=== PATIENT | male | born 1955 | race Caucasian/White ===

== ENCOUNTER 2022-02-22 18:56 | Emergency (ER) | payer MEDICARE, OTHER, SELFPAY ==
[2022-02-22] VITALS (26 sets, daily range): BP systolic 80–135; BP diastolic 52–90; PULSE 68–94; RESP 15–27; TEMP 36.6; O2SAT 92–99; BMI 26.9
--- NOTE | 2022-02-22 18:58 | DI.RAD.S_ITS ---
PROCEDURE: XR CHEST 1V INDICATIONS: chest pain TECHNIQUE: One view of the chest was acquired. COMPARISON: None. FINDINGS: Surgical changes and devices: None. Lungs and pleura: Lungs are clear. No pleural effusions or pneumothorax. Mediastinum: Suspected small hiatal hernia Mediastinal contours otherwise normal. Heart size is normal. Bones and chest wall: No suspicious bony lesions. Overlying soft tissues appear unremarkable. IMPRESSION: Suspect small hiatal hernia. No acute finding. Dictated by: Familia Virk M.D. on 02/22/2022 at 19:41 Approved by: Familia Virk M.D. on 02/22/2022 at 19:42
--- NOTE | 2022-02-22 19:03 | ED.CHESTPAIN ---
HPI - Chest Pain General Chief Complaint: Chest Pain Stated Complaint: chest pain radiating down left arm Time Seen by Provider: 02/22/22 19:03 History of Present Illness HPI narrative: 66-year-old male nonsmoker with noncontributory medical history presents with a chief complaint of central chest pain with radiation down his left arm that started while at rest yesterday. He denies any obvious provocation or palliation but states, as noted above that it radiates into his left shoulder and arm. He states at its most intense it was a 5/10 and currently is about a 2/10, he did take a full-dose aspirin about 1 hour ago. He states yesterday he was having associated symptoms such as shortness of breath some nausea and sweating but that resolved after a few hours. He does state that the pressure and discomfort has been present ever since his symptoms started yesterday. He denies radiation to his back or right side. He is not dizzy nor weak or lightheaded and denies any current shortness of breath, nausea, vomiting nor fever or chills. He is never had a blood clot and denies recent trauma, travel or known cancer. He was seen and evaluated by the medics yesterday and encouraged to come to the emergency department but he did not want to for various reasons at that point Related Data Allergies Allergy/AdvReac Type Severity Reaction Status Date / Time No Known Drug Allergies Allergy Verified 02/22/22 19:16 Review of Systems Review of Systems Narrative: GENERAL: See HPI HEENT: Denies sinus pain, ear pain, sore throat, difficulty swallowing, dizziness. RESPIRATORY: See HPI CARDIOVASCULAR: See HPI GASTROINTESTINAL: Denies nausea, vomiting, abdominal pain, diarrhea, constipation, melena. : Denies dysuria, frequency, incontinence, hematuria, urinary retention. MUSCULOSKELETAL: denies weakness, joint pain, or bony pain SKIN: Denies rash, skin lesions, or other NEUROLOGIC: Denies weakness, headache, numbness, change in speech, confusion, seizures, incoordination. PSYCHIATRIC: No concerning psychosocial issues. 12 point review of systems is negative except for those stated above Patient History Social History Smoking Status: Never smoker Exam Narrative Exam Narrative: GENERAL: [66] year old patient appears stated age. Well-developed patient, in mild distress. HEAD: Atraumatic. Normocephalic. EYES: Pupils equal round and reactive. Extraocular motions intact. No scleral icterus. No injection or drainage. ENT: Nose without bleeding, purulent drainage. Throat without erythema, tonsillar hypertrophy or exudate. Airway patent. NECK: Trachea midline. Non tender CARDIOVASCULAR: Regular rate and rhythm without murmurs, gallops, or rubs. RESPIRATORY: Clear to auscultation. Breath sounds equal bilaterally. No wheezes, rales, or rhonchi. GASTROINTESTINAL: Abdomen soft, non-tender, nondistended. EXTREMITIES: No edema or joint tenderness. BACK: Nontender without deformity or crepitance. No flank tenderness. NEURO: AOx3. SKIN: No rash or erythema of visible areas Initial Vital Signs Initial Vital Signs: Vital Signs Temperature 97.9 F 02/22/22 19:00 Pulse Rate 83 02/22/22 19:00 Respiratory Rate 18 02/22/22 19:00 Blood Pressure 127/90 02/22/22 19:00 Pulse Oximetry 97 02/22/22 19:00 Oxygen Delivery Method 02/22/22 19:00 Course Orders Ordered: ED Orders 02/22/22 18:58 XR chest 1V Stat EKG-12 Lead Stat 02/22/22 19:09 CRP [C-Reactive Protein Quant] Stat Complete Blood Count AUTO DIFF Stat Comprehensive Metabolic Panel Stat D Dimer Stat ESR [Erythrocyte Sedimentation Rate] Stat Lipase Stat Magnesium Stat Partial Thromboplastin Time Stat Prothrombin Time INR Stat Troponin & CK Cardiac Panel Stat 02/22/22 19:43 CT angio chest abdomen pelvis Stat 02/23/22 01:22 COVID19 -Nasal RAPID/Pre-Proc Stat 02/23/22 02:42 PTT [Partial Thromboplastin Time] Stat Heparin Sodium/Dextrose (Heparin Drip) 25,000 unit in 500 mls @ 20 mls/hr IV CONT LEO; Protocol Last Admin: 02/22/22 20:42 Dose: 1,000 units/hr, 20 mls/hr Documented By: ANNAMARIA Nitroglycerin (Nitroglycerin 0.4 Mg Sl Tab) 0.4 mg SL [id number] PRN PRN Reason: Chest Pain Last Admin: 02/22/22 19:17 Dose: 0.4 mg Documented By: ANNAMARIA Discontinued Medications Aspirin (Aspirin 81 Mg Chew Tab) 324 mg PO NOW ONE Stop: 02/22/22 19:05 Last Admin: 02/22/22 19:20 Dose: Not Given Documented By: ANNAMARIA Heparin Sodium (Porcine) (Heparin 5,000 Unit/Ml Vial) 5,000 unit IV NOW ONE Stop: 02/22/22 20:19 Last Admin: 02/22/22 20:35 Dose: 5,000 unit Documented By: ANNAMARIA Reevaluation(s) Reevaluation #1: Patient given nitro and did little to improve his pain (dropped from a 4 to a 3) but did result in a rather precipitous drop in his blood pressure from the initial 127 down to the 80s. Will not administer more Consultations Consultation #1: calls to [facility], [place], [facility]. No beds. On List. Call to , no beds initially, but at 0130 called back with available tele-bed. Dr. Mon happy to accept. Vital Signs Vital signs: Vital Signs - 8 hr 02/22/22 19:00 02/22/22 19:00 02/22/22 19:02 Temperature 97.9 F Pulse Rate 83 91 H Respiratory Rate 18 Blood Pressure 127/90 127/90 Pulse Oximetry 97 93 Oxygen Delivery Method Room Air Room Air 02/22/22 19:02 02/22/22 19:15 02/22/22 19:15 Temperature Pulse Rate 83 78 Respiratory Rate 18 26 H Blood Pressure 129/89 Pulse Oximetry 97 99 Oxygen Delivery Method Room Air Room Air 02/22/22 19:19 02/22/22 19:19 02/22/22 19:20 Temperature Pulse Rate 80 Respiratory Rate 25 H Blood Pressure 133/90 127/81 Pulse Oximetry 98 Oxygen Delivery Method Room Air 02/22/22 19:20 02/22/22 19:26 02/22/22 19:26 Temperature Pulse Rate 84 92 H Respiratory Rate 21 25 H Blood Pressure 80/53 L Pulse Oximetry 95 97 Oxygen Delivery Method Room Air Room Air 02/22/22 19:27 02/22/22 19:27 02/22/22 19:30 Temperature Pulse Rate 94 H Respiratory Rate 19 Blood Pressure 83/52 L 121/71 Pulse Oximetry 98 Oxygen Delivery Method Room Air 02/22/22 19:30 02/22/22 19:33 02/22/22 19:33 Temperature Pulse Rate 80 77 Respiratory Rate 20 21 Blood Pressure 128/77 Pulse Oximetry 97 98 Oxygen Delivery Method Room Air Room Air 02/22/22 19:36 02/22/22 19:36 02/22/22 19:39 Temperature Pulse Rate 74 Respiratory Rate Blood Pressure 119/83 119/81 Pulse Oximetry 97 Oxygen Delivery Method Room Air 02/22/22 19:39 02/22/22 19:42 02/22/22 19:42 Temperature Pulse Rate 68 71 Respiratory Rate 24 23 Blood Pressure 121/80 Pulse Oximetry 98 97 Oxygen Delivery Method Room Air Room Air 02/22/22 19:45 02/22/22 19:45 02/22/22 19:48 Temperature Pulse Rate 69 69 Respiratory Rate 21 24 Blood Pressure 120/78 Pulse Oximetry 98 98 Oxygen Delivery Method Room Air Room Air 02/22/22 19:48 02/22/22 19:51 02/22/22 19:51 Temperature Pulse Rate 68 Respiratory Rate 26 H Blood Pressure 128/76 121/76 Pulse Oximetry 98 Oxygen Delivery Method Room Air 02/22/22 19:54 02/22/22 19:54 02/22/22 19:57 Temperature Pulse Rate 70 Respiratory Rate Blood Pressure 119/81 135/82 Pulse Oximetry 98 Oxygen Delivery Method Room Air 02/22/22 19:57 02/22/22 20:14 02/22/22 20:30 Temperature Pulse Rate 73 72 73 Respiratory Rate 25 H 17 Blood Pressure Pulse Oximetry 98 92 98 Oxygen Delivery Method Room Air Room Air Room Air 02/22/22 21:00 02/22/22 21:30 02/22/22 22:00 Temperature Pulse Rate 79 82 80 Respiratory Rate 24 27 H 26 H Blood Pressure Pulse Oximetry 96 96 96 Oxygen Delivery Method Room Air Room Air Room Air 02/22/22 22:30 02/22/22 22:43 02/22/22 22:43 Temperature Pulse Rate 80 81 Respiratory Rate 25 H 22 Blood Pressure 126/60 Pulse Oximetry 96 97 Oxygen Delivery Method 02/22/22 23:00 02/22/22 23:30 02/23/22 00:00 Temperature Pulse Rate 71 76 80 Respiratory Rate 20 15 20 Blood Pressure 123/66 106/60 110/69 Pulse Oximetry 95 94 95 Oxygen Delivery Method Room Air 02/23/22 00:30 Temperature Pulse Rate 75 Respiratory Rate 16 Blood Pressure 104/73 Pulse Oximetry 96 Oxygen Delivery Method Room Air MDM - Chest Pain Lab Data Result diagrams: 02/22/22 19:09 02/22/22 19:09 Labs: Lab Results 02/22/22 02/22/22 02/22/22 Range/Units 19:09 19:09 19:09 WBC 10.6 (4.5-11.0) X10^3/uL RBC 5.09 (4.5-5.9) X10^6/uL Hgb 16.1 (13.5-17.5) g/dL Hct 46.2 (41-53) % MCV 90.7 (80-100) fL MCH 31.6 (26-34) PG MCHC 34.8 (30-36) % RDW 12.7 (11.6-14.8) % Plt Count 238 (150-400) X10^3/uL Neut % (Auto) 72.5 (50-75) % Lymph % (Auto) 15.4 L (25-40) % Bullock % (Auto) 11.1 (3-14) % Eos % (Auto) 0.6 L (2-4) % Baso % (Auto) 0.4 (0-2) % Neut # (Auto) 7700 H (2815-2936) /uL Lymph # (Auto) 1600 (8331-4248) /uL Bullock # (Auto) 1200 H (0-900) /uL Eos # (Auto) 100 (0-450) /uL Baso # (Auto) 0 (0-100) /uL ESR (0-15) MM/HR PT 11.7 (10.1-12.7) SECONDS INR 1.0 (0.9-1.3) APTT 30 (26-36) SECONDS D-Dimer (<500) ng/ml Sodium 139 (137-145) mmol/L Potassium 4.1 (3.4-5.1) mmol/L Chloride 105 (98-107) mmol/L Carbon Dioxide 24 (22-32) mmol/L BUN 13 (9-20) mg/dL Creatinine 0.90 (0.66-1.25) mg/dL Estimated GFR > 60 (>60) mL/min BUN/Creatinine Ratio 14.4 (6-22) Glucose 116 H (80-110) mg/dL Calcium 9.0 (8.4-10.2) mg/dL Magnesium 1.9 (1.6-2.3) mg/dL Total Bilirubin 0.7 (0.2-1.3) mg/dL AST 110 H (17-59) IU/L ALT 33 (<50) IU/L Alkaline Phosphatase 96 (38-126) U/L Total Creatine Kinase 252 H (55-170) U/L CK-MB (CK-2) 39.30 H (<2.37) ng/mL CK-MB (CK-2) Rel Index 15.6 H* (1.5-5.0) % Troponin I 6.390 H* (0.01-0.034) ng/mL C-Reactive Protein (<1.0) mg/dL Total Protein 7.9 (6.3-8.2) g/dL Albumin 4.2 (3.5-5.0) g/dL Globulin 3.7 (1.7-4.1) g/dL Albumin/Globulin Ratio 1.1 (1.0-2.8) Lipase 36 (23-300) U/L 02/22/22 02/22/22 02/22/22 Range/Units 19:09 19:09 19:09 WBC (4.5-11.0) X10^3/uL RBC (4.5-5.9) X10^6/uL Hgb (13.5-17.5) g/dL Hct (41-53) % MCV (80-100) fL MCH (26-34) PG MCHC (30-36) % RDW (11.6-14.8) % Plt Count (150-400) X10^3/uL Neut % (Auto) (50-75) % Lymph % (Auto) (25-40) % Bullock % (Auto) (3-14) % Eos % (Auto) (2-4) % Baso % (Auto) (0-2) % Neut # (Auto) (3010-3703) /uL Lymph # (Auto) (6919-9694) /uL Bullock # (Auto) (0-900) /uL Eos # (Auto) (0-450) /uL Baso # (Auto) (0-100) /uL ESR 6 (0-15) MM/HR PT (10.1-12.7) SECONDS INR (0.9-1.3) APTT (26-36) SECONDS D-Dimer 626 H (<500) ng/ml Sodium (137-145) mmol/L Potassium (3.4-5.1) mmol/L Chloride (98-107) mmol/L Carbon Dioxide (22-32) mmol/L BUN (9-20) mg/dL Creatinine (0.66-1.25) mg/dL Estimated GFR (>60) mL/min BUN/Creatinine Ratio (6-22) Glucose (80-110) mg/dL Calcium (8.4-10.2) mg/dL Magnesium (1.6-2.3) mg/dL Total Bilirubin (0.2-1.3) mg/dL AST (17-59) IU/L ALT (<50) IU/L Alkaline Phosphatase (38-126) U/L Total Creatine Kinase (55-170) U/L CK-MB (CK-2) (<2.37) ng/mL CK-MB (CK-2) Rel Index (1.5-5.0) % Troponin I (0.01-0.034) ng/mL C-Reactive Protein 3.0 H (<1.0) mg/dL Total Protein (6.3-8.2) g/dL Albumin (3.5-5.0) g/dL Globulin (1.7-4.1) g/dL Albumin/Globulin Ratio (1.0-2.8) Lipase (23-300) U/L Imaging Data CT scan - chest: Radiologist's Impression: Close Chest/Abdomen/Pelvis CTA (Signed) Franck Colvin - 02/22/22 Chest X-Ray (Signed) Familia Virk - 02/22/22 Launch?[address] [address] [address] Scan Report Signed Patient: Oren Hudson MR#: [id number] : 1955 Acct:[id number] Age/Sex: 66 / M Date of Service: 02/22/22 Loc: ED Accession Number: [id number] ?? Procedure: CT angio chest abdomen pelvis Ordering Provider: Nickolas Thomas D.O. PROCEDURE:? CT ANGIO CHEST ABDOMEN PELVIS ? INDICATIONS:? chest pain, radiation to arm, elevated Dimer ? TECHNIQUE:? Precontrast 5 mm thick sections acquired from the lung apices to the iliac crests.? After the administration of intravenous contrast, 2.5 mm thick sections again acquired from the lung apices to the iliac crests.? Maximum intensity projection (MIP) oblique sagittal and coronal reformats were then acquired.? For radiation dose reduction, the following was used:? automated exposure control.? ? COMPARISON:? None. ? FINDINGS:? Image quality:? Excellent.? ? AORTA:? Noncontrast images demonstrate no evidence of intramural hematoma.? The aorta is normal in caliber and contour without intimal flaps to suggest dissection.? There is conventional branching of the aortic arch.? The visualized great vessels are normal in caliber and appear patent.? The celiac, superior mesenteric, and inferior mesenteric arteries are patent.? There are 2 accessory right renal arteries.? There is a single left renal artery.? Renal arteries appear patent bilaterally.? The common, external, and internal iliac arteries appear patent.? The common femoral and visualized proximal superficial femoral arteries appear patent. ? CHEST:? Lower Neck: No lymphadenopathy by size criteria. Thyroid:? Visualized thyroid demonstrates no discrete nodules. Axillae: No lymphadenopathy by size criteria. Chest Wall:? Unremarkable.? Bones: Visualized osseous structures demonstrate no suspicious lesions. ? Lungs and Airways:? No acute consolidation.? There is mild dependent atelectasis bilaterally.? There is focal nodular thickening along the right minor fissure in the right middle lobe measuring up to 0.6 cm on series 6, image 194. A 0.3 cm right middle lobe nodules present on series 6, image 215. In the left lower lobe there is a 0.3 cm nodule on series 6, image 249.? The trachea and central airways are patent. Pleura: No pneumothorax or pleural effusions.? ? Heart: Heart size is normal.? No pericardial effusion. Thoracic Vessels: The pulmonary arteries demonstrate no filling defects to suggest pulmonary embolism. Mediastinum and Maggie: No lymphadenopathy by size criteria. Esophagus: No wall thickening.? There is a moderate-sized hiatal hernia. ? Lung bases:? Unremarkable.? ? Heart:? Heart is normal in size. ? ? ABDOMEN: Liver:? There is a cyst within the left hepatic lobe as well as additional small low-density foci in the liver which are too small to characterize but likely represent cysts.? Gallbladder:? Within normal limits without calcified gallstones.? ? Biliary ducts:? No biliary ductal dilatation.? ? Pancreas:? Unremarkable.? ? Spleen:? Normal in size.? ? Adrenal Glands:? No adrenal nodules.? ? Kidneys and Ureters:? No hydronephrosis.? ? ? Stomach and Bowel:? Stomach and small bowel loops are normal in caliber and wall thickness.? There is colonic diverticulosis without acute diverticulitis.? Mild segmental wall thickening in the sigmoid colon is suggestive of a mild colitis. Peritoneum:? No abnormal intraperitoneal fluid.? No free air.? ? Ventral Wall: ? No hernia.? Abdominal Nodes:? No retroperitoneal or mesenteric adenopathy by size criteria.? Vessels:? Aorta and inferior vena cava are normal in size.? ? PELVIS: Pelvic Organs:? There is moderate enlargement of the prostate.? ? Bladder:? Urinary bladder is partially distended with mild trabeculation of the bladder wall. Pelvic Nodes: No enlarged lymph nodes.? Miscellaneous:? A small fat-containing left inguinal hernia is present. ? Bones:? There are bilateral pars defects at L5 with anterolisthesis of L5 on S1 measuring approximately 0.7 cm. Severe degenerative disc disease demonstrated at L5-S1.? There is a mild superior endplate compression deformity of the L1 vertebral body anteriorly with up to 40% loss of height.? No retropulsed fragments in the spinal canal.? Visualized osseous structures demonstrate no suspicious focal lesions. ? ? IMPRESSION:? ? 1. No evidence of aortic dissection or aneurysm. ? 2. No evidence of central pulmonary embolism. ? 3. No acute airspace consolidation. ? 4. Small bilateral pulmonary nodules measuring up to 0.6 cm.? If patient is at high risk for malignancy, a follow-up chest CT may be performed in 12 months to demonstrate stability. ? 5. Mild superior endplate compression deformity of the L1 vertebral body of indeterminate acuity. ? 6. Bilateral pars defects at L5 with associated mild anterolisthesis. ? ? Dictated by: Franck Colvin M.D. on 02/22/2022 at 20:53 ? ? Approved by: Franck Colvin M.D. on 02/22/2022 at 21:03 ? ECG Data Interpretation: [1903] EKG is normal sinus rhythm rate [81] and free of any signs of ischemia or ectopy. Inverted if not slightly biphasic T-waves in V2 and V3 with inversions also noted in V4 and V5. No ST segmental elevations or depressions MDM Narrative Medical decision making narrative: Patient with concerning history and physical exam with EKG demonstrating biphasic T-waves in septal leads but no ST segmental elevation or depression. Patient has critically elevated troponin and requires transport to facility with inpatient Cardiology and will likely need heart catheterization. Patient and family aware of diagnosis and plan. We thank Devorah slaughter for their willingness inability to help this kind gentleman in need of cardiac care. Critical Care Time Critical Care Time Total Critical Care Time: 35 Attestation: The high probability of a clinically significant, sudden or life threatening deterioration of the [CV] system(s) required my full and direct attention, intervention and personal management. The aggregate critical care time was [35] minutes. This time is in addition to time spent performing reported procedures but includes the following: [x] Data Review and interpretation [x] Patient assessment and monitoring of vital signs [x] Documentation [x] Medication orders and management Discharge Plan Departure Patient Disposition: [facility] Clinical Impression: Acute non-ST elevation myocardial infarction (NSTEMI) Referrals: Malik Dickson DO [Primary Care Provider] -
[2022-02-22] MEDS: NITROGLYCERIN 0.4 MG SL TAB SL (19:17)
[2022-02-22 19:19] LABS: Add Manual Diff / Slide Review NO; Basophils Absolute Auto 0 /uL (0-100); Basophils Percent Auto 0.4 % (0-2); Eosinophils Absolute Auto 100 /uL (0-450); Eosinophils Percent Auto 0.6 % (2-4); Hematocrit 46.2 % (41-53); Hemoglobin 16.1 g/dL (13.5-17.5); Lymphocytes Absolute Auto 1600 /uL (1100-4500); Lymphocytes Percent Auto 15.4 % (25-40); Mean Corpuscular HGB Conc 34.8 % (30-36); Mean Corpuscular Hemoglobin 31.6 PG (26-34); Mean Corpuscular Volume 90.7 fL (80-100); Monocytes Absolute Auto 1200 /uL (0-900); Monocytes Percent Auto 11.1 % (3-14); Neutrophils Absolute Auto 7700 /uL (1500-7000); Neutrophils Percent Auto 72.5 % (50-75); Platelet Count 238 X10^3/uL (150-400); Red Blood Cell Count 5.09 X10^6/uL (4.5-5.9); Red Cell Distribution Width 12.7 % (11.6-14.8); White Blood Cell Count 10.6 X10^3/uL (4.5-11.0)
[2022-02-22 19:35] LABS: D Dimer 626 ng/ml (<500)
[2022-02-22 19:41] LABS: Alanine Aminotransferase 33 IU/L (<50); Albumin 4.2 g/dL (3.5-5.0); Albumin Globulin Ratio 1.1 (1.0-2.8); Alkaline Phosphatase 96 U/L (38-126); Aspartate Aminotransferase 110 IU/L (17-59); BUN Creatinine Ratio 14.4 (6-22); Bilirubin Total 0.7 mg/dL (0.2-1.3); Blood Urea Nitrogen 13 mg/dL (9-20); Carbon Dioxide 24 mmol/L (22-32); Chloride 105 mmol/L (98-107); Creatine Kinase 252 U/L (55-170); Estimated Glomerular Filt Rate > 60 mL/min (>60); Globulin 3.7 g/dL (1.7-4.1); Glucose 116 mg/dL (80-110); HEMOLYSIS < 15 (0-50); Lipase 36 U/L (23-300); Magnesium 1.9 mg/dL (1.6-2.3); Potassium 4.1 mmol/L (3.4-5.1); Sodium 139 mmol/L (137-145); Total Protein 7.9 g/dL (6.3-8.2)
[2022-02-22 19:43] LABS: Prothrombin Time 11.7 SECONDS (10.1-12.7)
--- NOTE | 2022-02-22 19:43 | DI.CT.S_ITS ---
PROCEDURE: CT ANGIO CHEST ABDOMEN PELVIS INDICATIONS: chest pain, radiation to arm, elevated Dimer TECHNIQUE: Precontrast 5 mm thick sections acquired from the lung apices to the iliac crests. After the administration of intravenous contrast, 2.5 mm thick sections again acquired from the lung apices to the iliac crests. Maximum intensity projection (MIP) oblique sagittal and coronal reformats were then acquired. For radiation dose reduction, the following was used: automated exposure control. COMPARISON: None. FINDINGS: Image quality: Excellent. AORTA: Noncontrast images demonstrate no evidence of intramural hematoma. The aorta is normal in caliber and contour without intimal flaps to suggest dissection. There is conventional branching of the aortic arch. The visualized great vessels are normal in caliber and appear patent. The celiac, superior mesenteric, and inferior mesenteric arteries are patent. There are 2 accessory right renal arteries. There is a single left renal artery. Renal arteries appear patent bilaterally. The common, external, and internal iliac arteries appear patent. The common femoral and visualized proximal superficial femoral arteries appear patent. CHEST: Lower Neck: No lymphadenopathy by size criteria. Thyroid: Visualized thyroid demonstrates no discrete nodules. Axillae: No lymphadenopathy by size criteria. Chest Wall: Unremarkable. Bones: Visualized osseous structures demonstrate no suspicious lesions. Lungs and Airways: No acute consolidation. There is mild dependent atelectasis bilaterally. There is focal nodular thickening along the right minor fissure in the right middle lobe measuring up to 0.6 cm on series 6, image 194. A 0.3 cm right middle lobe nodules present on series 6, image 215. In the left lower lobe there is a 0.3 cm nodule on series 6, image 249. The trachea and central airways are patent. Pleura: No pneumothorax or pleural effusions. Heart: Heart size is normal. No pericardial effusion. Thoracic Vessels: The pulmonary arteries demonstrate no filling defects to suggest pulmonary embolism. Mediastinum and Maggie: No lymphadenopathy by size criteria. Esophagus: No wall thickening. There is a moderate-sized hiatal hernia. Lung bases: Unremarkable. Heart: Heart is normal in size. ABDOMEN: Liver: There is a cyst within the left hepatic lobe as well as additional small low-density foci in the liver which are too small to characterize but likely represent cysts. Gallbladder: Within normal limits without calcified gallstones. Biliary ducts: No biliary ductal dilatation. Pancreas: Unremarkable. Spleen: Normal in size. Adrenal Glands: No adrenal nodules. Kidneys and Ureters: No hydronephrosis. Stomach and Bowel: Stomach and small bowel loops are normal in caliber and wall thickness. There is colonic diverticulosis without acute diverticulitis. Mild segmental wall thickening in the sigmoid colon is suggestive of a mild colitis. Peritoneum: No abnormal intraperitoneal fluid. No free air. Ventral Wall: No hernia. Abdominal Nodes: No retroperitoneal or mesenteric adenopathy by size criteria. Vessels: Aorta and inferior vena cava are normal in size. PELVIS: Pelvic Organs: There is moderate enlargement of the prostate. Bladder: Urinary bladder is partially distended with mild trabeculation of the bladder wall. Pelvic Nodes: No enlarged lymph nodes. Miscellaneous: A small fat-containing left inguinal hernia is present. Bones: There are bilateral pars defects at L5 with anterolisthesis of L5 on S1 measuring approximately 0.7 cm. Severe degenerative disc disease demonstrated at L5-S1. There is a mild superior endplate compression deformity of the L1 vertebral body anteriorly with up to 40% loss of height. No retropulsed fragments in the spinal canal. Visualized osseous structures demonstrate no suspicious focal lesions. IMPRESSION: 1. No evidence of aortic dissection or aneurysm. 2. No evidence of central pulmonary embolism. 3. No acute airspace consolidation. 4. Small bilateral pulmonary nodules measuring up to 0.6 cm. If patient is at high risk for malignancy, a follow-up chest CT may be performed in 12 months to demonstrate stability. 5. Mild superior endplate compression deformity of the L1 vertebral body of indeterminate acuity. 6. Bilateral pars defects at L5 with associated mild anterolisthesis. Dictated by: Franck Colvin M.D. on 02/22/2022 at 20:53 Approved by: Franck Colvin M.D. on 02/22/2022 at 21:03
[2022-02-22 19:46] LABS: PTT Partial Thromboplastin Tim 30 SECONDS (26-36)
[2022-02-22 19:59] LABS: Erythrocyte Sedimentation Rate 6 MM/HR (0-15)
[2022-02-22 20:14] LABS: CKMB % Relative Index 15.6 % (1.5-5.0)
[2022-02-22] MEDS: HEPARIN 5,000 UNIT/ML VIAL 5000 UNIT IV (20:35)
[2022-02-22] MEDS: HEPARIN DRIP 25,000 UNIT/500 ML IV.SOLN 20 UNIT IV (20:42)
--- NOTE | 2022-02-22 23:54 | PC.NURSE ---
CUSTOMS VERIFIER/pta note: Called for a transfer: [facility]: 0 beds. Waitlist 2324. Sent facesheet [facility]: 0 beds. Waitlist 2325. Sent facesheet. [facility]: 0 beds. Waitlist. 2329. Sent facesheet. [facility]: no beds, no waitlist. Devorah Morales: Will call us back. 2334. Sent facesheet and pushed images. Talked to Conrad.
[2022-02-23] VITALS: BP 110/69; PULSE 80; RESP 20; O2SAT 95
[2022-02-23 00:30] VITALS: BP 104/73; PULSE 75; RESP 16; O2SAT 96
[2022-02-23 01:00] VITALS: BP 101/60; PULSE 81; RESP 21; O2SAT 96
[2022-02-23 01:30] VITALS: BP 113/67; PULSE 90; RESP 20; O2SAT 99
[2022-02-23 01:50] LABS: COVID19 -Nasal RAPID Negative (Negative)
[2022-02-23 02:00] VITALS: BP 116/80; PULSE 83; RESP 20; O2SAT 94
== END 2022-02-23 02:25 | disposition short-term general hospital (02) ==
PROVIDERS: Emergency Provider Emergency Medicine; PCP Family Medicine
DX: I21.4 Non-ST elevation (NSTEMI) myocardial infarction (principal); Z20.822 Contact with and (suspected) exposure to COVID-19
CPT/HCPCS: 36415; 71045; 71275; 74174; 80053; 82550; 82553; 83690; 83735; 84484; 85025; 85379; 85610; 85651; 85730; 86140; 87635; 93005; 93010; 96365; 96366; 99285; 99291; C9803; J1644; Q9967